=== PATIENT | male | born 1945 | race Caucasian/White ===

== ENCOUNTER 2017-03-15 22:27 | Observation (INO) | payer OTHER ==
[~2017-03-15] VITALS: Ht 193 cm; Wt 92.8 kg
[~2017-03-15 22:27] MED LIST: ASPIR-LOW81 MG PO; ATORVASTATIN CA40 MG PO; BISOPROLOL-HCT1 EACH PO; CALAN120 MG PO; CARDURA2 M1 PO; CARVEDILOL25 MG PO; CATAPRES0.1 MG PO; CEFDINIR300 MG PO; CLOPIDOGREL75 MG PO; CYCLOBENZAPRINE10 MG PO; DIGOXIN250 MCG PO; ELIQUIS5 MG PO; LIPITOR40 MG PO; LISINOPRIL5 MG PO; LOPRESSOR100 M1 PO; LOPRESSOR50 MG PO; MIRALAX17 GM PO; NORMODYNE,TRAN200 MG IV; PROCARDIA XL60 MG PO; PROTONIX40 MG PO; Procardia XL,Adalat PO; TERAZOSIN HCL2 MG PO; VERAPAMIL HCL240 MG PO; VERAPAMIL HCL360 MG PO
[2017-03-15 23:10] LABS: HEMATOCRIT 40.4 % (38.0-50.0); MCH 27.3 PG (29.0-34.0); MCHC 32.4 G/DL (30.0-36.0); MCV 84.2 FL (86-99); MEAN PLAT.VOLUME 9.8 uM^3 (9.0-12.4); PLATELET COUNT 123 K/uL (156-360); RBC DIS.WIDTH-SD 42.6 % (39-53); WHITE BLOOD COUNT 8.3 K/uL (4.1-10.2)
[2017-03-15 23:13] LABS: ADD MIUA? NO; BILIRUBIN NEGATIVE; BLOOD NEGATIVE; COLOR YELLOW ((YELLOW)); GLUCOSE (STRIP) NEGATIVE; KETONES NEGATIVE; LEUKOCYTES NEGATIVE; NITRITE NEGATIVE; PROTEIN (STRIP) 30; SPECIFIC GRAVITY 1.019 (1.000-1.030); UCUL ADDED? NO
[2017-03-15 23:21] LABS: CHLORIDE 107 mEq/L (99-109)
[2017-03-15 23:22] LABS: POTASSIUM 3.1 mEq/L (3.7-5.4); SODIUM 143 mEq/L (136-147)
[2017-03-15 23:24] LABS: GLUCOSE 133 mg/dL (70-99)
[2017-03-15 23:25] LABS: ANION GAP 9 MEQ/L (2-14)
[2017-03-15 23:26] LABS: TOTAL BILIRUBIN 0.7 mg/dL (0.0-1.0)
[2017-03-15 23:27] LABS: ALKALINE PHOSPHATASE 105 IU/L (3-129); SERUM ETHYL ALCOHOL < 10 mg/dL
[2017-03-15 23:28] LABS: GFR ESTIMATE (CALCULATED) > 59 mL/min/
[2017-03-15 23:29] LABS: UREA NITROGEN (BUN) 17 mg/dL (9-23)
[2017-03-15 23:31] LABS: CREATINE KINASE 84 IU/L (1-294); LIPASE 26 U/L (1.0-51.0); TOTAL CK 84 IU/L (1-294); TROP-I INTERPRETATION NEGATIVE; TROPONIN-I 0.01 ng/mL (0.0-0.30)
[2017-03-16 06:00] VITALS: BP 167/102
[2017-03-16 06:35] LABS: HEMATOCRIT 42.4 % (38.0-50.0); MCH 27.5 PG (29.0-34.0); MCHC 32.3 G/DL (30.0-36.0); MEAN PLAT.VOLUME 9.9 uM^3 (9.0-12.4); PLATELET COUNT 132 K/uL (156-360); RBC DIS.WIDTH-CV 13.9 % (11.8-14.6); RBC DIS.WIDTH-SD 43.1 % (39-53); RED BLOOD COUNT 4.99 M/uL (4.00-5.50); WHITE BLOOD COUNT 7.1 K/uL (4.1-10.2)
[2017-03-16 07:12] LABS: ALKALINE PHOSPHATASE 92 IU/L (3-129); ANION GAP 4 MEQ/L (2-14); CHLORIDE 107 MEQ/L (99-109); GFR ESTIMATE (CALCULATED) > 59 mL/min/; GLUCOSE 89 mg/dL (70-99); POTASSIUM 3.5 MEQ/L (3.7-5.4); SAMPLE HEMOLYSIS CHECK 0; SAMPLE ICTERIC CHECK 0; SAMPLE LIPEMIA CHECK 0; SODIUM 143 MEQ/L (136-147); TOTAL BILIRUBIN 0.8 MG/DL (0.0-1.0); UREA NITROGEN (BUN) 15 mg/dL (9-23)
[2017-03-16 09:02] VITALS: BP 185/105
[2017-03-16 09:30] VITALS: BP 155/88
[2017-03-16 11:25] VITALS: BP 160/99
[2017-03-16] MEDS ORDERED: PROSCAR5 MG PO (12:56)
[2017-03-16] MEDS ORDERED: FLOMAX0.4 MG PO (12:57)
[2017-03-16] MEDS ORDERED: LISINOPRIL20 MG PO (15:20)
[2017-03-16] MEDS ORDERED: OMEPRAZOLE20 MG PO (15:23)
[2017-03-16] MEDS ORDERED: MIRTAZAPINE30 MG PO (15:34)
[2017-03-16 20:24] VITALS: BP 136/81
[2017-03-16 23:56] VITALS: BP 152/100
[2017-03-17 03:38] VITALS: BP 144/84
[2017-03-17 11:43] VITALS: BP 162/68
[2017-03-17] MEDS ORDERED: DIGOX250 MCG PO (13:59)
[2017-03-17] MEDS ORDERED: LEVETIRACETAM500 MG PO (15:07)
== END 2017-03-17 16:11 | disposition home or self-care (01) ==
LOC: EME 22:27 → 5SOUTH 03-16 04:10 → EDOF 03-16 04:10 → 5SOUTH 03-16 04:10 → ENRESERV 03-16 04:11 → 5SOUTH 03-16 05:35
PROVIDERS: Emergency Medicine; Internal Medicine
DX: G40.909 Epilepsy, unspecified, not intractable, without status epilepticus (principal); I69.354 Hemiplegia and hemiparesis following cerebral infarction affecting left non-dominant side; I25.10 Atherosclerotic heart disease of native coronary artery without angina pectoris; I48.91 Unspecified atrial fibrillation; I10 Essential (primary) hypertension; N40.0 Benign prostatic hyperplasia without lower urinary tract symptoms; E87.6 Hypokalemia; E78.5 Hyperlipidemia, unspecified; I25.5 Ischemic cardiomyopathy; Z87.891 Personal history of nicotine dependence; Z79.01 Long term (current) use of anticoagulants; Z79.82 Long term (current) use of aspirin; Z95.1 Presence of aortocoronary bypass graft; K21.9 Gastro-esophageal reflux disease without esophagitis; D69.6 Thrombocytopenia, unspecified; Z80.9 Family history of malignant neoplasm, unspecified
CPT/HCPCS: 70450; 70551; 71020; 80053; 81003; 82550; 82553; 83690; 84484; 85027; 93005; 95819; 99281; 99284; G0378; G0480; J1953; J7050